=== PATIENT | female | born 1945 | race African-American/Black ===

== ENCOUNTER 2018-01-28 10:57 | Outpatient (CLI) | payer OTHER | END 2018-01-28 11:06 | disposition home or self-care (01) | LOC: MAMO-SONO 10:57 | DX: Z12.31 Encounter for screening mammogram for malignant neoplasm of breast (principal); Z87.898 Personal history of other specified conditions; D24.1 Benign neoplasm of right breast ==

== ENCOUNTER 2018-01-29 07:52 | Outpatient (CLI) | payer OTHER | END 2018-01-29 07:56 | disposition home or self-care (01) | LOC: SONOGRAMA 07:52 | DX: D24.1 Benign neoplasm of right breast (principal) ==

== ENCOUNTER 2018-06-20 09:16 | Outpatient (CLI) | payer OTHER | END 2018-06-20 10:21 | disposition home or self-care (01) | LOC: SONOGRAMA 09:16 | DX: N60.11 Diffuse cystic mastopathy of right breast (principal); N60.12 Diffuse cystic mastopathy of left breast ==